=== PATIENT | male | born 1995 | race Caucasian/White ===

== ENCOUNTER 2017-06-09 07:16 | Inpatient (IN) | payer OTHER ==
[2017-05-15 15:35] VITALS: BMI 27.0
--- NOTE | 2017-05-15 15:57 | PAT Medication Instructions ---
Service Date May 15, 2017. Current Home Medication List Ibuprofen (Advil), 400 MG PO Q8H PRN for Headache Medication Instructions For Your Scheduled Surgery - Check with surgeon for instructions: Ibuprofen (Advil), 400 MG PO Q8H PRN for Headache If you have any questions please call us at [phone] or [phone] or [phone]
[2017-05-15 16:42] LABS: BASO % 0.6 %; BASO ABS # 0.03 K/uL (0-0.2); COMPLETE YES; EOS % 0.9 %; HEMATOCRIT 43.6 % (42-52); IG% 0.2 %; LYMPH % 35.9 %; LYMPH ABS # 1.68 K/uL (1.2-3.4); MEAN CELL VOLUME 90.1 fL (80-100); MEAN CORPUSCULAR HGB CONC 34.4 g/dl (32-36); MEAN PLATELET VOLUME 9.2 fL (7.4-10.4); MONO % 8.3 %; NEUT % 54.1 %; PLATELET COUNT 220 K/uL (130-400); RED BLOOD COUNT 4.84 M/uL (4.7-6.1); WHITE BLOOD COUNT 4.68 K/uL (4.8-10.8)
[2017-05-15 16:50] LABS: INR 1.1 (0.9-1.1); PROTHROMBIN TIME (PATIENT) 11.3 SECONDS (9.0-12.0)
--- NOTE | 2017-05-26 19:14 | HISTORY & PHYSICAL EXAMINATION ---
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 PROPOSED SURGICAL PROCEDURE: Consists of a maxillary advancement with direct osseous fixation and a mandibular setback with setback with rotation and direct osseous fixation. As I stated the surgery will be performed at [facility] under general anesthesia on 06/09/2017. HISTORY OF PRESENT ILLNESS: Favio Coyle is a very healthy 21-year-old white male who stands 5 feet 9 inches tall, weighs 180 pounds. He was referred to my office approximately 1 year ago with a chief complaint of a traumatic malocclusion. 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 The patient also is having a great deal of difficulty incising foods and chewing foods because his teeth do not meet in a normal manner. As a result of this, the patient was having excessive wear in his teeth and excessive wear patterns in his jaw joints and muscular structures. He sought the services of an school guard in the [facility] and it was determined that Favio would need a combination of orthodontics and orthognathic surgery. Prior to starting the orthodontics he had a conference with me in which I described the surgery and the timetable for his treatment plan. In essence, I told him that he would need to have extensive orthodontics to level and align his teeth, both upper and lowers so that we could then do jaw surgery to make his upper jaw longer by advancing it and that would give him more support to his upper lip and base of the nose and cheek bone and then rotate his lower jaw with a slight posterior setback to align his teeth and chain in a normal relationship. After discussing the case with Favio, he decided to undergo the orthodontic therapy. He has been undergoing orthodontic therapy for the last 18 months and he is now ready to undergo the orthognathic surgical procedure on 06/09/2017 at [facility]. He is aware that the surgery will be done under general anesthesia in the operating room and he could spent up to 1 or 2 nights in the hospital and one of those nights being in the intensive care unit. I discussed with him all the risks and complications which are inherent with the surgical procedure. A complete list and review can be found in the risk assessment portion of the chart. The basic complications and risks that were discussed were that of pain, swelling, infection, bleeding, malrotation of his jaws, a poor sagittal split fracture and the need for intermaxillary fixation for as long as 4-6 weeks. Usually this is a very rare complication. We talked about nerve problems which could result in permanent numbness to the lower lip, chin, and facial area but again these are very rare and they usually more of a transient nature. We talked about scar formation problems with his temporomandibular joint, a persistent malocclusion and temporomandibular joint problems. We also discussed sinus problems such as acute or chronic sinus issues that will need to be addressed by more surgery or medications. The patient understands that he will be on a restricted diet and restricted activity for the first month after surgery and he is aware of this. We discussed the fact that he will have pain, swelling and need to have close followup by both his school guard in my office. Overall, Favio has an extremely good understanding of the risks, complications associated with the surgery. I gave him plenty of time to review the risks and complications and answered all his questions to the best of my ability. I feel that he has a very good understanding of the expected outcome and the associated risks and complications associated with the surgery that we are about to perform. 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 He lives with his parents in [place], [place]. There are no complicated family history that would cause any contraindications for doing the surgery. The patient is a rather healthy young man without any medical compromise. He has no history of any type of heart or respiratory problems. He has no history of requiring any type of special heart or pulmonary function studies. He is quite active. He can run, walk, do all kinds of activities without noticing any shortness of breath. He was never diagnosed with any type of neurologic, mental health or nervous condition. There is no history of any type of diabetic, thyroid problems or blood dyscrasias. The patient does not give any history of any type of orthopedic or joint problems. No history of any type of oral or digestive problems such as acid reflux or digestive problems. The patient does not smoke. He does use alcohol occasionally and he says no more than 4-5 drinks per week. He does not use any marijuana or cocaine. The patient had multiple oral surgery as a child in which he had teeth extracted, he had frenectomy and also had an esophageal polyp removed under anesthesia. He did well from all the problems and tolerated well these surgeries without any sequelae. He gives no history of any type of liver, kidney or prostate problems. No history of any type of cancer and no history of any type of anesthetic complications. The patient has no allergies and he does not take any drugs or medications at the present time. Overall, I find Favio Coyle age 21 to be a very healthy young man who is capable of undergoing the orthognathic surgical procedure as I described above. PHYSICAL EXAMINATION: HEAD: Normocephalic without any history of any head trauma, loss of consciousness, dizziness or vertigo. No frequent headaches. EARS: Within normal limits. External auditory canals are clear. No hearing deficits. External pinna is within normal limits. There are no lesions noted. Ear drum is clear and there is no excessive wax buildup in the ear canal. EYES: Pupils equal, round, reactive to light and accommodation. Sclerae is clear. Good extraocular motion. Visual acuity is good. NOSE: Midline. Septum is midline. There is no polyps, no deviations. No breathing deficits through the nose. The patient has good air flow through both nostrils. Nose is midline. NECK: Supple, full range of motion. Thyroid is not palpable. There are no bruits, no abnormal pulsations. The patient has an extremely good range of motion of his neck. He has good flexation and good extension. There are no masses noted and thyroid is midline without any palpable masses. ORAL CAVITY: Within normal limits as far as the soft tissue of the floor of the mouth, the tongue, the pharyngeal area and the posterior airways. There are scars along the interocclusal line of the mucosa of the cheeks as well as the lip and lateral tongue as a result of his malocclusion and a constant lip and tongue biting. 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 As a result of this, the patient has an extremely traumatic occlusion with great difficulty in closing his jaws into a normal relationship. Surprisingly, the patient has a good range of motion of his temporomandibular joints without any clicks, pops, or deviations. His chin is grossly deviated approximately 5-7 mm towards the left side. His maxillary midline is in line with his upper lip and the midline of the nose. He has good facial show of his teeth on smile. He is definitely a flat in the mid face area and the upper lip area. My plan is to advance him approximately 7 mm which will give him great support of his upper lip, we may need to do a slight posterior impaction of the maxilla and then do a sagittal split osteotomy to rotate the mandible back and align it up with the upper teeth to achieve a stable occlusion, direct osseous fixation will be used. CARDIOVASCULAR: Evaluation is within normal limits. The patient has no murmurs. The patient has a very good strong heartbeat without any palpable thrills or abnormal pulsations. The patient does not complain of any chest pain or abnormal pulsations or palpitations. LUNGS: Clear to auscultation and percussion, bilaterally symmetric excellent expansion. No history of any type of wheezing, rhonchi or problems with asthma or COPD. ABDOMEN: Nontender. No organomegaly. No rebound phenomena noted. ORTHOPEDIC: Grossly intact. SKIN: Clear, dry, free of pathology. No rashes, lumps or bumps that are noted. No discolorations. Overall, I find Favio to be an extremely healthy young man who is capable of undergoing the orthognathic surgical procedure. Routine laboratory studies were found and they were all found to be within normal limits. I did an occlusal evaluation of the patient and checked his surgical appliances, they appear to be fitting very well. His case was sent for virtual planning and I will be reviewing the virtual planning on 05/28/2017 to virtually plan the case on the computer and then have the surgical guides made. All in all, Favio is capable of undergoing the surgical procedure. I answered all his questions and he feels very comfortable in the procedure. He understands the importance of close followup, oral hygiene care and dietary care. The patient was given explicit instructions on how to care for himself after the surgical procedure and as a matter of fact was given postoperative prescriptions and postoperative instructions. The postoperative prescriptions included Peridex mouth rinse, Zofran, Vicodin and Augmentin. These will be used after the surgery. He was also given instructions about the use of [place] nasal spray and Afrin nasal spray. He was given my telephone number, my cell number and my email to contact me before or after the surgical procedure if he or his parents have any questions.
[2017-06-09] VITALS (16 sets, daily range): BP systolic 124–140; BP diastolic 63–81; PULSE 55–103; TEMP 36.5–37; O2SAT 92–99; Ht 175.3 cm; Wt 84.0 kg
[~2017-06-09] VITALS: Ht 175.3 cm; Wt 84.0 kg
[~2017-06-09 07:16] MED LIST: CEFAZOLIN 1000MG IV PUSH 5 ML IV SCH; CEFAZOLIN 2000MG IV PUSH 10 ML IV SCH; IBUP-1277 PO; LACTATED RINGER'S 1000ML 1,000 ML IV SCH
[2017-06-09] MEDS ORDERED: FLUMAZENIL 0.1 MG/1 ML 10 ML VIAL IV PRN (08:00)
[2017-06-09] MEDS ORDERED: EpHEDrine SULFATE INJ 50 MG/ML AMP IV PRN (08:00)
[2017-06-09] MEDS ORDERED: NALOXONE HCL 0.4 MG/1 ML VIAL/CARP IV PRN (08:00)
[2017-06-09] MEDS ORDERED: ATROPINE SULFATE 0.1 MG/ML 5ML SYR IV PRN (08:00)
[2017-06-09] MEDS ORDERED: PHENYLEPHRINE 100MCG/ML 5ML SYR IV PRN (08:00)
[2017-06-09] MEDS ORDERED: MEPERIDINE HCL 25 MG/ML CARP IV PRN (08:00)
[2017-06-09] MEDS ORDERED: FENTANYL CITRATE INJ 50 MCG/1 ML 2 ML VIAL IV PRN (08:00)
[2017-06-09] MEDS ORDERED: HYDROmorphone INJ 2 MG/ML SYR/VIAL IV PRN (08:00)
[2017-06-09] MEDS ORDERED: LABETALOL HCL IV 5 MG/ML 20ML IV PRN (08:00)
[2017-06-09] MEDS ORDERED: ONDANSETRON INJ 2 MG/ML 2 ML VIAL IV PRN (08:00)
[2017-06-09] MEDS ORDERED: SCOPOLAMINE 1.5 MG TDSY TD ONE ×2 (08:10→08:15)
[2017-06-09] MEDS ORDERED: ACETAMINOPHEN 1000 MG/100 ML IV IV ONE (08:21)
[2017-06-09] MEDS ORDERED: FENTANYL CITRATE INJ 50 MCG/1 ML 2 ML VIAL ONE ×3 (09:15→11:26)
[2017-06-09] MEDS ORDERED: ROCURONIUM BROMIDE 10 MG/ML 5 ML VIAL IV ONE (09:15)
[2017-06-09] MEDS ORDERED: LIDOCAINE HCL 2% 2 ML VIAL (20MG/ML) ONE (09:15)
[2017-06-09] MEDS ORDERED: PROPOFOL IV EMULSION 10 MG/ML 20 ML VIAL IV ONE ×2 (09:15→11:28)
[2017-06-09] MEDS ORDERED: MIDAZOLAM HCL 1 MG/ML 2ML VIAL ONE (09:16)
--- NOTE | 2017-06-09 09:20 | History & Physical Bridge Note ---
H&P Re-Evaluation Bridge Note: I have examined the patient, reviewed the History & Physical and in the interval since the performance of the History & Physical I have noted the following changes of clinical significance: No changes noted
[2017-06-09] MEDS ORDERED: PHENYLEPHRINE 1% NA SPR 15 ML BTL ONE (09:28)
[2017-06-09] MEDS ORDERED: SODIUM CHLORIDE 0.65% NA SOLN 45 ML (OCEAN) PRN (09:30)
[2017-06-09] MEDS ORDERED: ACETAMINOPHEN/HYDROCODONE ELIX 15 ML/CUP UDP PO PRN (09:30)
[2017-06-09] MEDS ORDERED: LORAZEPAM INJ 1 MG in SYRINGE 0.5 ML IV PRN (09:30)
[2017-06-09] MEDS ORDERED: MoRPHine SULFATE 2 MG/ML CARP IV PRN (09:30)
[2017-06-09] MEDS ORDERED: OXYMETAZOLINE HCL 0.05% NA SPR 15 ML BTL PRN (09:30)
[2017-06-09] MEDS ORDERED: TRIAMCINOLONE ACET 0.1% OINT 15 GM TUBE ONE (09:51)
[2017-06-09] MEDS ORDERED: BUPIVACAINE/EPINEPHRINE 0.5% 1:200,000 1.8 ML CARP ONE (09:52)
[2017-06-09] MEDS ORDERED: DEXAMETHASONE SOD INJ 4 MG/ML VIAL ONE ×2 (10:22→10:23)
[2017-06-09] MEDS ORDERED: ONDANSETRON INJ 2 MG/ML 2 ML VIAL ONE (10:23)
[2017-06-09] MEDS ORDERED: LABETALOL HCL IV 5 MG/ML 20ML IV ONE (11:29)
[2017-06-09] MEDS ORDERED: GLYCOPYRROLATE INJ 0.2 MG/ML VIAL ONE (12:33)
[2017-06-09] MEDS ORDERED: NEOSTIGMINE METHYLSULFATE 5 MG/5 ML SYR ONE (12:33)
[2017-06-09] MEDS ORDERED: HYDROmorphone INJ 2 MG/ML SYR/VIAL ONE (13:13)
[2017-06-09] MEDS ORDERED: CHLORHEXIDINE GLUCONATE 0.12% 480 ML MT ONE (13:56)
[2017-06-09] MEDS ORDERED: CEFAZOLIN SOD 1 GM VIAL ONE (13:57)
--- NOTE | 2017-06-09 14:47 | [facility] Post Operative Brief Note ---
Immediate Operative Summary Operative Date Jun 09, 2017. Pre-Operative Diagnosis Severe Maxillary and Mandibular Dysplasia Post-Operative Diagnosis Severe Maxillary and Mandibular Dysplasia Procedure(s) Performed Lefort I Maxillary Osteotomy and Mandibular Sagittal Split Surgeon Dr. Neal Medical Care Administrator Surgeon(s) BROCK Carrillo Estimated Blood Loss 150 cc Findings maxillary hypoplasia and prognathic lower jaw Specimens none per surgeon Drains none Anesthesia GA and Local Complication(s) None Disposition Surgical ICU
--- NOTE | 2017-06-09 15:21 | Anesthesiology Progress Note ---
Anesthesia Post Op Note Date & Time Jun 09, 2017 at 15:21 Vital Signs Pain Intensity: 0 Vital Signs Past 12 Hours Date Time Temp Pulse Resp B/P (MAP) Pulse Ox O2 Delivery O2 Flow Rate FiO2 06/09/17 15:15 36.6 71 16 125/77 95 Oxymask 10 06/09/17 15:05 51 16 126/74 95 Oxymask 10 06/09/17 14:55 55 16 120/72 95 Oxymask 10 06/09/17 14:45 36.5 61 16 125/76 97 Oxymask 10 06/09/17 07:42 36.5 78 20 129/75 99 Room Air Notes Mental Status: alert / awake / arousable, participated in evaluation Pt Amnestic to Procedure: Yes Nausea / Vomiting: adequately controlled Pain: adequately controlled Airway Patency, RR, SpO2: stable & adequate BP & HR: stable & adequate Hydration State: stable & adequate Anesthetic Complications: no major complications apparent
--- NOTE | 2017-06-09 15:30 | DIAGNOSTIC IMAGING REPORT ---
MANDIBLE < 4 VIEWS CLINICAL HISTORY: 21 years-old Male presenting with Status post Orthognathic Surgery AP Mandibular and lat Jaw. TECHNIQUE: Frontal and lateral views of the mandible were obtained. COMPARISON: None. FINDINGS: Multiple screw fixation across the bilateral mandibular fractures at the level of the posterior body near the angle of the mandible. Additional extensive late and screw fixation of the lateral maxillae and maxillary and mandibular alveolar processes. The mandible is in near-anatomic alignment with minimal diastases at the fracture plane greater on the left. The sinuses are grossly clear. Bony nasal septum with slight leftward deviation. IMPRESSION: Postsurgical changes of mandibular fixation with near-anatomic alignment of the mandible. Additional fixation hardware as above. Electronically signed by: Fly Tucker M.D. 06/09/2017 3:29 PM Dictated Date/Time: 06/09/2017 3:26 PM
[2017-06-09] MEDS: ONDANSETRON INJ 2 MG/ML 2 ML VIAL IV PRN ×2 (16:05→21:51)
--- NOTE | 2017-06-09 16:45 | Critical Care Consultation ---
Critical Care Consultation Date of Consultation: Jun 09, 2017. Attending Physician: Pilo Neal D.M.D. Reason for Consultation: Airway Management. History of Present Illness : Favio Coyle is a very healthy 21-year-old white male who stands 5 feet 9 inches tall, weighs 180 pounds. He was referred to my office approximately 1 year ago with a chief complaint of a traumatic malocclusion. 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 The patient also is having a great deal of difficulty incising foods and chewing foods because his teeth do not meet in a normal manner. As a result of this, the patient was having excessive wear in his teeth and excessive wear patterns in his jaw joints and muscular structures. He sought the services of an detective precinct in the [facility] and it was determined that Favio would need a combination of orthodontics and orthognathic surgery. The patient underwent Le[place] I Maxillary Osteotomy and Mandibular Sagittal Split. Currently he is in the ICU for the close monitoring of the oxygenation and airway management if at all his breathing is jeopardize. Currently he is resting comfortably and denies any distress except post surgical pain in the jaw. He is able to communicate and is oxygenating well 96 to 97 % on 6 L oxymask. He does not have any H/O Obstructive sleep apnea syndrome. Social History Smoking Status: Never Smoker Alcohol Use: socially Drug Use: none Marital Status: single Housing Status: lives with family Occupation Status: student Allergies Coded Allergies: NO KNOWN DRUG ALLERGIES (Verified Allergy, Unknown, ., 06/09/17) Home Medications Scheduled PRN Ibuprofen (Advil), 400 MG PO Q8H PRN for Headache Current Inpatient Medications Current Inpatient Medications Medications (Trade) Dose Ordered Sig/Adrian Route Start Time Stop Time Status Last Admin Dose Admin Lactated Ringer's 1,000 ml @ 15 mls/hr Q24H IV 06/09/17 06:00 06/10/17 05:59 06/09/17 07:59 15 MLS/HR Cefazolin Sodium 10 ml @ 2.5 mls/min PREOP IV 06/09/17 06:00 06/10/17 05:59 06/09/17 09:54 2.5 MLS/MIN Miscellaneous (Remove Transderm-Scop Patch) 1 ea Q48H N/A 06/12/17 08:00 06/12/17 08:01 Potassium Chloride/Dextrose/ Sod Cl 1,000 ml @ 125 mls/hr Q8H IV 06/09/17 16:30 07/09/17 16:29 Ketorolac Tromethamine (Toradol Inj) 30 mg Q6 IV. 06/09/17 12:00 06/14/17 11:59 UNV Dexamethasone Sodium Phosphate 6 mg/Syringe 1.5 ml @ 1 mls/min Q6 IV 06/09/17 12:00 07/09/17 11:59 UNV Oxymetazoline HCl (Afrin 0.05% Nasal [place]) 2 sprays Q4H PRN NA 06/09/17 09:30 07/09/17 09:29 Ondansetron HCl (Zofran Inj) 4 mg Q6H PRN IV 06/09/17 09:30 07/09/17 09:29 06/09/17 16:05 4 MG Triamcinolone Acetonide (Kenalog 0.1% Oint) 1 appln HS EXT 06/09/17 21:00 07/09/17 20:59 Lorazepam 1 mg/ Syringe 1 ml @ 1 mls/min Q4H PRN IV 06/09/17 09:30 07/09/17 09:29 Chlorhexidine Gluconate (Peridex Oral Soln) 15 ml BID MT 06/09/17 21:00 07/09/17 20:59 Sodium Chloride (Hooven Nasal [place]) 2 sprays Q2H PRN NA 06/09/17 09:30 07/09/17 09:29 Acetaminophen/ Hydrocodone Bitart (Lortab Elixir) 15 ml Q3H PRN PO 06/09/17 09:30 06/23/17 09:29 UNV Morphine Sulfate (MoRPHine SULFATE INJ) 2 mg Q1H PRN IV 06/09/17 09:30 06/23/17 09:29 Cefazolin Sodium 1000 mg/Dextrose 55 ml @ 100 mls/hr Q8H IV 06/09/17 09:30 06/10/17 09:29 UNV Review of Systems ENT: + dental problems Musculoskeletal: + joint pain (Post operatively/mandibular pain.) Physical Exam Date Time Temp Pulse Resp B/P (MAP) Pulse Ox O2 Delivery O2 Flow Rate FiO2 06/09/17 15:57 37.0 55 18 140/70 (93) 96 Oxymask 6.0 06/09/17 15:40 36.6 60 16 128/78 96 Oxymask 10 06/09/17 15:25 36.6 61 16 131/80 95 Oxymask 10 06/09/17 15:15 36.6 71 16 125/77 95 Oxymask 10 06/09/17 15:05 51 16 126/74 95 Oxymask 10 06/09/17 14:55 55 16 120/72 95 Oxymask 10 06/09/17 14:45 36.5 61 16 125/76 97 Oxymask 10 06/09/17 07:42 36.5 78 20 129/75 99 Room Air Young Male, S/Post surgery Lefort I Maxillary Osteotomy and Mandibular Sagittal Split resting comfortably and is not in any distress and is also oxygenating well 96 % on 6 L Oxymask. HEENT: TAMEKA/ Unable to examine the throat or the mouth, because of the surgery. NECK: Supple and no JVD. No lymphadenopathy. CHEST: Bilateral clear lungs. No wheeze or the rales heard. HEART: S1/S2 heard. RRR. GI: Soft and non tender. No mass felt. BS positive. NEURO: Non focal. Moves all the extremities. EXTREMITIES: No edema/Non tender calf muscle. SKIN : No rash or lesion. General Appearance: well-appearing, no apparent distress Eyes: PERRLA, sclerae normal, conjunctivae normal ENT: normal ear exam Neck: normal range of motion, no tenderness, trachea midline, no stridor, supple, no thyromegaly, no lymphadenopathy Respiratory: breath sounds normal, clear to auscultation, clear to percussion, no respiratory distress Cardiovasular: regular rate/rhythm, normal S1S2 Abdomen: non tender, normal bowel sounds, no rebound, no masses, no guarding, no organomegaly Genitourinary - Male: other (Not performed.) Upper Extremities: no edema, no deformity, normal ROM Lower Extremities: no edema, no deformity, normal ROM Pulses: radial (R) (2+), radial (L) (2+), dorsalis pedis (R) (2+), dorsalis pedis (L) (2+) Neuro: alert, oriented x 3, normal motor exam, normal sensation Psychiatric: normal affect, no suicidal ideation Diagnostic Results FINDINGS: Multiple screw fixation across the bilateral mandibular fractures at the level of the posterior body near the angle of the mandible. Additional extensive late and screw fixation of the lateral maxillae and maxillary and mandibular alveolar processes. The mandible is in near-anatomic alignment with minimal diastases at the fracture plane greater on the left. The sinuses are grossly clear. Bony nasal septum with slight leftward deviation. IMPRESSION: Postsurgical changes of mandibular fixation with near-anatomic alignment of the mandible. Additional fixation hardware as above. Assessment & Plan 1. Severe Maxillary and Mandibular Dysplasia. The patient S/Post Lefort I Maxillary Osteotomy and Mandibular Sagittal Split. The patient was transferred in to ICU for close monitoring of the patient and also airway management. Overall he seems to be doing better on current plan of care and will monitor him closely. DVT prophylaxis. Dr. [facility].
--- NOTE | 2017-06-09 17:25 | OPERATIVE REPORT ---
DATE OF OPERATION: 06/09/2017 SURGEON: Dr. Pilo Neal. OPERATIVE INDICATIONS: Favio Coyle is a healthy 21-year-old white male was brought to the operating room for correction of a maxillofacial deformity. 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 As a result of this jaw deformity, the patient was not able to close his jaws into a normal relationship, has a great deal of difficulty with eating and function because of the severe positioning of his upper and lower jaws. The patient has undergone extensive orthodontic therapy to level and align his teeth in preparation for the orthognathic surgery today. My plan is to perform a [place] I maxillary osteotomy to advance and slightly impact the maxilla on the right side to level the maxilla, to rotate the maxilla slightly towards the right side to line up his maxillary midline with his nasal midline and then use direct osseous fixation. Once this was done, a bilateral sagittal split osteotomy will be done to set the mandible back and rotate it to establish a good postoperative occlusion in the class 1 relationship. The patient has a good understanding of the procedures and inherent risks. Routine laboratory studies were all found to be within normal limits and the patient was cleared to undergo the general anesthetic. DESCRIPTION OF PROCEDURE: After the patient was cleared to undergo general anesthesia, he was brought down to the operating room and placed under general anesthesia via nasotracheal intubation. After adequate timeout was verified, the operation began. He was anesthetized by the anesthetic Department via nasotracheal intubation. After adequate level of anesthesia was obtained, the patient was prepped and draped in the usual manner and sterile towels were used to isolate the facial area. At this time, local anesthesia was infiltrated around the maxillary and mandibular teeth to allow for hemostasis and local anesthetic effect of both the maxillary and the mandibular osteotomies. The plan was to perform the bilateral sagittal split cuts without fracturing the mandibular sagittal split areas and then completing the maxillary osteotomy, the LeFort I osteotomy with direct fixation and then complete the osteotomy cuts on the lower, induce the direct fixation and then finally complete the case. The operation started as follows: After the oral cavity was irrigated and suctioned dried an oropharyngeal throat pack was placed, I turned my attention to the right side. With the use of a retractor, the tissues were held very tight and electrocautery was used to make an incision along the external oblique ridge, approximately 1.5 cm in length. The tissues were reflected and incised with the electrocautery instrument down to the bone. The periosteal tissue was reflected to expose the bone. The bone was very thin with a very sharp external oblique ridge. Once the tissue was reflected, I was able to very carefully dissect the lingual tissue to find the entrance of the neurovascular bundle as it entered the mandibular canal. Once this was countered, a retractor was placed to protect the nerve. Now using a large round luis f, the very spinous process of the external oblique ridge was rounded out to allow for a plateauing effect. Now using a reciprocating saw, an osteotomy was made parallel to the occlusal plane, approximately 1-2 mm above the neurovascular bundle on the lingual side. Now switching to a spear point Etienne luis f, series of holes were made in the external oblique ridge from the previously made osteotomy to the area between mandibular, first and second molars. It was taken to the dense cortical bone. I switched back to the reciprocating saw and made a parallel osteotomy to the long axis of the first molar through the dense cortical bone in the inferior border of the mandible. Once this was done, I made sure that all the osteotomy sites were through the cortical bone. Bleeding and hemostasis was in good control. At this time, the area was irrigated with copious amounts of normal saline and then a gauze pressure dressing was placed. I now turned my attention to the left side. Once again, the tissues were held very tightly with a retractor. The electrocautery was used to incise the tissue. Once the tissues were incised, it was reflected to expose the anatomical structures in the area where the osteotomy would be. Once again, the anatomy was similar and that a large round luis f was used to round off the very spinous process of the external oblique ridge. Once this was done, I then located the neurovascular bundle as it entered the lingual aspect of the mandible. Now using a reciprocating saw, an osteotomy was now made parallel to the occlusal plane approximately 2 mm above the neurovascular bundle. I now used a spear point Etienne drill to make a series of holes and then connected these holes into the marrow vascular channel. When I encountered the area between the first and second molars, I then returned back to the reciprocating saw and made an osteotomy parallel to the long axis of the first molar and through the dense cortical bone of the inferior border. Once I was certain that all cuts were made through the cortical bone, I packed the area and made sure that all hemostasis was in good. Once this was done, this portion of the procedure was complete. I now turned my attention to the maxilla. From the preoperative planning, it was required that the maxilla be advanced approximately 8 mm. In addition to being advanced, there was a slight rotation towards the right side and a slight impaction of about 3 mm on the right side. These were necessary to both level the maxillary occlusal plane and to ensure that the midline of the maxilla was lined up to the patient's facial midline. To accomplish this, a typical LeFort I osteotomy was carried out. The tissues were incised with the electrocautery instrument. The incisions were reflected to expose the bone. The periosteal elevators were used to reflect the mucoperiosteal tissues around the nose and then I dissected posteriorly to the tuberosity regions. Once this was done, the roots were measured and then I added 5 mm to this measurement. Using the reciprocating saw, once again an osteotomy was made parallel to the occlusal plane from the piriform rim posterior to the tuberosity region. It was done on both right and left sides. Once these osteotomies were complete, I used a ball-curved osteotome and osteotomized the medial lerma of the maxillary sinus. I then used another balled osteotome but this one was straight and I osteotomized the nasal septal bone to reflect it off the roof of the maxilla. Great care was taken to undermine the mucoperiosteal tissues to prevent any rents in the mucoperiosteal tissues of the floor of the nose. I then turned my attention back to the tuberosity pterygoid region and with the use of a curved osteotome, I was able to osteotomize the pterygoid plates bilaterally. By doing so, the maxilla was now quite passive and I was able to down fracture without any problem. Great care was taken down fracture the maxilla to ensure that there were no rents in the mucoperiosteal tissue. Despite very careful maneuvering, there were 2 small rents that were easily repaired with use of a 3-0 chromic suture. Otherwise, the nasal mucoperiosteal tissues were in good position. With great care, I was able to reflect the mucoperiosteal tissue and the bony margins around the neurovascular bundles bilaterally. The greater palatine artery and neurovascular bundles on both right and left sides of the maxilla was isolated. Great care was used to remove bone around the vessel and by doing so, I was able to free up the vessel. At this time, it was noted that we still had some tethering effect of the maxilla due to the fibrous tissue in the posterior aspect. With the use of both blunt and sharp dissection, I was able to release this tethering effect and the maxilla became quite passive. I was thinking of severing the attachments of the greater palatine artery and nerve to allow for a more relaxed maxilla, but it was noted that I was able to advance the maxilla in the predetermined postoperative position without any undue force on the nerves. At this time, I was very happy with the very passive nature of the maxilla. At this time, the intermediate splint was placed on the mandible. The maxilla was easily positioned into the splint and held there with the use of with 25 gauge stainless steel wires in 5 locations. At this time, I was able to rotate the maxilla and mandibular complex superiorly after making sure that the condyles were well seated within the glenoid fossa. By doing this, I now noted that I had to remove approximately 3 mm of bone on the right side to account for the leveling effect, this was easily done with both rongeurs and rotary instrument. Once the maxilla was leveled and slightly rotated to the right side, I noted that we had good bony contact of the maxilla and that the maxilla was quite stable in this position. There was no locking or deviations. The nasal septal bone was noted to be in good position without any forces that would cause a deviation. All the bony margins were smoothed and trimmed. There were no abnormal bony protuberances. The bilateral buccal fat pads were trimmed to remove any excess fat in the area. Once again, we had good visualization of the neurovascular bundles and they were very relax and free. I dissected quite vigorously posteriorly into the soft palate to allow for a relaxed advancement. At this time, the areas were irrigated and suctioned dried, bleeding and hemostasis was in good control. The tissue tone was excellent. At this time, we started the direct fixation of the maxilla. To accomplish this, Titanium plates were carefully bent and passively fitted bilaterally over the pyriform rim and the buttress areas. Using self-tapping self-drilling screws, the plates were positioned very appropriately and then the appropriate screws were used. Once we induced the direct fixation, I released the intermaxillary fixation and I noted that the maxilla was stable and in good position and the condyles were well seated within the glenoid fossa as we had a reproducible bite. Being satisfied with the repositioning of the maxilla, I now turned my attention back to the mandible. The gauze pressure dressings were removed bilaterally. I turned my attention first to the right side. With the use of the appropriate sagittal splitters and small osteotomes, I was able to complete the osteotomy on the right side with preservation of the neurovascular bundle. Because there was a rotational effect of the maxilla, I needed to do some bony reduction posteriorly to allow for the large segment of the mandibular osteotomy to slide posteriorly. I also know that will need to come back and do some bony reduction on the anterior aspect of the distal fragment to allow for the setback as well. Once this was completed on the right side, I turned my attention to the left side where a similar osteotomy was carried out with preservation of the nerve. The adjustments of the bones were carried out with the use of small rongeurs and rotary instruments. Great care was taken to allow for a reduction of the bone posteriorly to allow for the sliding effect and I will address the distal fragment, once the patient was placed in intermaxillary fixation. At this time, the oropharyngeal throat pack was removed, the oral cavity was irrigated and suctioned dried, the nasal cavity was also irrigated and suctioned dried of any clots within the nasopharyngeal area. I now placed the final splint on the maxilla and then the mandible was now rotated into position. Once again using 5 wires, I was able to place the wires in between the maxillary and mandibular teeth to induce intermaxillary fixation. Once the maxilla and mandible complex was secure, I then turned my attention first to the right side. With the use of a small periosteal elevator, I was able to make sure that the soft tissue was removed appropriately to allow for a passive setback and rotation of the mandible. To do so, I used a J periosteal elevator to reflect the mucoperiosteal tissue. I also made sure that because of the rotational effect posteriorly that I remove some bone in the posterior aspect to accommodate this. Now using a small hemostat, I was able to place the 2 fragments over each other and I noted that I needed to remove approximately 3 mm of bone in the anterior aspect of the distal fragment, this was done with the use of rotary instruments. Once this was done, I was able to line up the 2 fragments in the appropriate position and did the appropriate bony reductions to allow for good positioning of the condylar fragment and good positioning of the inferior border of the mandible. After this was accomplished, I then rotated the condylar fragment into position. With great care noting that the condyles were well seated. Using a small clasp, I was able to hold the 2 fragments together and then using an 11 blade, I made a small ann in the cheek, a trocar was placed and then using a series of 4 screws, I was able to place screws between the fragments to induce direct fixation of the mandibular fragment on the right side. Again, great care was taken to position the nerve to prevent any compression. Once this was done, I then adjusted any bony protuberances, irrigated the area with copious amounts of normal saline and then sutured closed with the use of a 4-0 Vicryl suture in an interrupted fashion. I now turned my attention back to the left side. At this time, the fragments were not in good alignment, because of the rotational effect and the need to reduce the fragment. With the use of a proper retraction, I was able to note that we needed to move this section of the mandible back about 5 mm and rotated again to the left side. This necessitated more bony reduction in the posterior aspect of the condylar fragments to allow for a passive fitting. Once this aspect of the osteotomy was completed, I then used a small clasp and held the 2 fragments together and noted that I needed to remove approximately 5 to 5.5 mm of bone in the anterior area and angle the anterior aspect of the distal fragment to allow for the appropriate positioning of the mandible. Once this was done with rotary instruments, I was then able to clasp the 2 fragments together and noted that we had excellent bone to bone contact. Now with the use of an 11 blade, the ann incision was made in the cheek, the trocar was placed and now using a series of 3 screws in the length of a 12 and 210, I was able to get excellent direct fixation of the fragment on the left side. Once again, appropriate bone reduction was carried out to ensure that the fragments were positioned properly and the inferior borders were lined up as well as the condyles were seated in the fossa. Being satisfied with this, I then checked the position of the screws to make sure the imperforate through the lingual cortical bone. I then checked the osteotomy sites for the fact that they were extremely stable. I then irrigated the area and closed the area with the use of a 4-0 Vicryl suture. At this time, I released the intermaxillary fixation and judged the occlusion to be extremely stable and reproducible. The midline was on and the occlusion was actually just as anticipated. Being satisfied with the position of the mandible, I then turned my attention to the maxilla, we irrigated the maxillary sinuses and made sure that hemostasis was in good control, any fat that was extruding into the wounds were easily trimmed. Being satisfied with the position of the maxilla and the stability of the maxilla, we then used our typical closure technique as follows: A nasal cinch technique was used to allow for proper positioning of the alar cartilage of the nose. This was done to ensure good soft tissues to support to the alar cartilages and base of the nose. The tissue was grasped on the right side and a [id number] pattern was used to grasp the tissue on the left side and then a by synching the sutures together, we ended up with a very nice anatomical relationship to the base of the nose. Once this was accomplished, a standard V-Y closure with a 4-0 Vicryl suture was carried out to induce excellent soft tissue closure to watertight closure of the maxillary incision. This created a very nice anatomical support to the upper lip and nose. At this time, the operation was complete. I now turned the case over to my agency sales management assistant, Liliam Almonte and she completed the incisions in the cheek that were made to allow for the positioning of the screws. She also placed an orogastric tube and evacuated the contents of the oral cavity. When she was done with this, I returned to the operating room table, I placed one dental elastic between the cuspid teeth to allow for some stability during the immediate postoperative phase. The patient will then be escorted to the recovery room. At this time, a heavy pressure dressing was applied to the upper lip and to the sides of the face. Once everything was accomplished, the patient was allowed to recover in the usual manner. Upon full recovery, he was extubated, and brought to the recovery room breathing satisfactorily with all vital signs stable. Estimated blood loss approximately 150 mL. Operating time was about 4 hours. Operating surgeon was Pilo Neal and agency sales management assistant was Liliam Almonte. The plan is to keep the patient in the recovery room and then transfer him to the intensive care unit for airway management. Depending on how the patient does tomorrow morning, will determine the length of stay that he will be in the hospital. Overall, Favio Coyle did extremely well from the surgical procedure. His outcome turned out to be very very good, he has a stable maxilla and mandible with a reproducible occlusion and we anticipate an uneventful recovery. I attest to the content of the Intraoperative Record and any orders documented therein. Any exception s are noted below.
[2017-06-09] MEDS: D5W AND 1/2NSS + 20MEQ KCL 1,000 ML IV SCH (17:33)
[2017-06-09] MEDS: CEFAZOLIN IV 1,000 MG in SYRINGE 0 ML IV SCH (17:33)
[2017-06-09] MEDS: KETOROLAC TROMETHAMINE 30 MG/ML VIAL IV. SCH (17:34)
[2017-06-09] MEDS: DEXAMETHASONE INJ 6 MG in SYRINGE 0 ML IV SCH (18:37)
[2017-06-09] MEDS ORDERED: INFLUENZA ADMINISTRATION CHARGE ONE (19:30)
[2017-06-09] MEDS ORDERED: INFLUENZA VIRUS QUAD VACCINE 0.5 ML SYR IM. ONE (19:30)
[2017-06-09] MEDS: CHLORHEXIDINE GLUCONATE 0.12% 480 ML MT SCH (19:53)
[2017-06-09] MEDS ORDERED: TRIAMCINOLONE ACET 0.1% OINT 15 GM TUBE EXT SCH (21:00)
[2017-06-10] VITALS (7 sets, daily range): BP systolic 107–142; BP diastolic 57–64; PULSE 62–84; TEMP 36.8–36.9; O2SAT 93–97
[2017-06-10] MEDS: D5W AND 1/2NSS + 20MEQ KCL 1,000 ML IV SCH (00:30)
[2017-06-10] MEDS: DEXAMETHASONE INJ 6 MG in SYRINGE 0 ML IV SCH ×2 (00:31→05:43)
[2017-06-10] MEDS: KETOROLAC TROMETHAMINE 30 MG/ML VIAL IV. SCH ×2 (00:31→05:43)
[2017-06-10] MEDS ORDERED: SODIUM CHLOR 0.45% + 20MEQ KCL 1,000 ML IV SCH (01:00)
[2017-06-10] MEDS: CEFAZOLIN IV 1,000 MG in SYRINGE 0 ML IV SCH ×2 (03:05→09:30)
--- NOTE | 2017-06-10 06:47 | Discharge Instructions ---
Discharge Instructions Date of Service Jun 10, 2017. 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 Instructions / Follow-Up Instructions / Follow-Up [facility] GENERAL POST-OPERATIVE INSTRUCTIONS FOR PATIENTS HAVING JAW SURGERY POST-OP INSTRUCTIONS BLEEDING: Will be under control by the time you leave our operating room. Some oozing or blood-tinged saliva may persist for up to 24 hours. Should excessive bleeding occur call the office or Dr. Neal. Expect nasal oozing for a few days. This also will occur after getting up or after you shower. PAIN: Is best controlled by the medications recommended. They are most effective when taken before the local anesthesia diminishes and normal sensation returns to the area. Do not take pain pills on an empty stomach. Narcotic pain medication such as Vicodin or Percocet may cause nausea, vomiting, drowsiness, dizziness, itching or constipation. If these side effects occur, discontinue the medication. You may take an alternative over the counter pain medication (Tylenol or Motrin ) as necessary or call our office for assistance. SWELLING: May occur immediately and increase gradually over 24-48 hours. Swelling from the surgical procedure will maximize at 48-72 hours. Ice packs applied externally to the area at 20 minute intervals throughout the day of surgery may help control swelling, but only use them if advised to by our office. Sleeping with the head of bed elevated above the level of the heart for the first two post-operative nights may tend to lessen swelling. NAUSEA: May result from a general anesthetic or the drugs prescribed for pain. Drinking a small glass of a carbonated beverage will generally control mild nausea. If not controlled, call the office. The Zofran ODT may be used as instructed. DIET: Soft foods and liquids will be required for 24-48 hours following surgery. Avoid hot, spicy foods. Do not smoke. Non-chewy foods are okay if you are using the elastic bands. Follow the instruction about what to eat and how to remove and replace your bands as instructed by Dr. Neal. If your jaw is wired together -liquid diet ONLY. ORAL HYGIENE: Should not be neglected. Vancleve your teeth as usual and rinse with warm salt water after each meal beginning gently the night of surgery. Use Peridex twice a day. Other mouth rinses can be used to keep your mouth clean. ACTIVITY: Should be restricted to a minimum for the first 7 -10 days. Strenuous work or exercise may promote bleeding. If you have had a general anesthetic or sedation, we must require that you be accompanied home by a responsible adult and an adult stays with you until recovered from the effects of the anesthesia. Under no circumstances are you to drive a car for at least 24 hours. FEVER: After surgery it is normal for the body temperature to be slightly elevated for 24 hours. SIDE EFFECTS: Such as an ear ache, temporary ache of adjacent teeth, restricted mouth opening , stretching or cracking at the corners of the mouth or discoloration of the skin may occur postoperatively. These are temporary conditions that will improve as healing progresses. As a result of the surgery your bite will feel off, this is normal. Your lower and upper lip will also feel numb as a result of the surgery; over time this will subside. EMERGENCIES: In case of profuse bleeding, uncontrolled pain, persistent nausea or abnormal elevation of temperature, if you have any questions about these instructions or your surgery please call our office or Dr. Reece cell phone. Our goal is to make this procedure as safe and pleasant as possible. Email Dr. Neal---[email or web address] Phone Dr. Neal after hours and weekends, Phone (office) [phone] Current Hospital Diet clear liquid advance to full the soft diet Patient's current hospital diet: Discharge Diet Recommended Diet: Clear Liquid Diet, Full Liquid Diet Fluid Restriction: None Diet Texture: Dental Soft (bite-sized) Liquid Consistency: Pudding Thick Procedures Procedures Performed: Lefort I Maxillary Osteotomy and Mandibular Sagittal Split Pending Studies Studies pending at discharge: no Laboratory Results no pending Work Instructions Return To Work: after follow-up Lifting Limitations: no more than 10 pounds Additional Instructions: none School Instructions Return To School: 5 days Additional Instructions: OK to Drive in 4-5 days as long as not on Vicodin I will need to see you with in 7-10 0f discharge Medical Emergencies . Who to Call and When: Medical Emergencies: If at any time you feel your situation is an emergency, please call 911 immediately. . Non-Emergent Contact Non-Emergency issues call your: Specialist Call Non-Emergent contact if: you have a fever, temperature is above 101, your pain is not controlled, your pain is worsening, your pain is concerning you, wound has increased drainage, wound has increased redness, wound has increased pain, you have any medication questions . "Provider Documentation" section prepared by Pilo Neal. . VTE Core Measure Inpt VTE Proph given/why not?: SCD's [place] Drug Monitoring Program Search Results: no issues identified Drug Monitoring Findings: none noted
--- NOTE | 2017-06-10 07:43 | DISCHARGE SUMMARY ---
DISCHARGE SUMMARY AND POSTOPERATIVE NOTE Favio Coyle underwent a rather extensive orthognathic surgical procedure yesterday at [facility]. 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 Direct osseous fixation was applied. Once this was accomplished, bilateral sagittal split osteotomies were carried out to set back and rotate the lower jaw and establish a normal dental occlusion. The patient underwent the surgical procedure yesterday at [facility] under general anesthesia. The surgery took approximately 4 hours and subsequently, the patient was discharged to the recovery room and then to the intensive care unit. The patient had an uneventful surgical and anesthetic event. He tolerated both the surgery and the anesthesia without any problems. We lost about 150 mL of blood. The overall result was exactly as planned. Postoperative x-rays showed very good approximation of the fragments of the maxilla and mandible with proper leveling and positioning of the maxilla and mandible. The temporomandibular joints were well seated within their respective temporomandibular joint fossa. Postoperatively, the patient did extremely well. I evaluated him a number of times last evening first in the recovery room and then in his ICU bed. At the time that he was observed in the ICU bed, he was still quite lethargic from the anesthesia. He had minimal swelling. His occlusion was stable and his vital signs were also stable. At that time, I evaluated the postoperative x-rays and found that they were very satisfactory. Again, I evaluated the patient at approximately 07:30 p.m. on June 09. At this time, the patient was more awake. He was taking fluids. He did not void at that time, but he was not complaining of any pain and again his vital signs are stable. My final evaluation of Favio was on 06/10/2017 at approximately 06:30 a.m. The patient did extremely well over the night. We had a very good report from the nursing staff. Because of his D5W fluids, his blood sugar was elevated and it was necessary to change to lactated Ringer's. The patient is doing extremely well. He has voided. He was not being complaining of pain. He has minimal swelling. His occlusion is very stable. At this time, I reviewed with Favio and his mother the postoperative care. I showed them how to place rubber bands in the appropriate position between his maxillary and mandibular teeth. We talked about dietary care, oral hygiene care and followup care. At this time, I discussed with Favio the fact that he can be discharged if he feels that he is able to do so. The patient expressed a desire to go home and after discussing this with the nursing staff, we all feel that it is appropriate for him to discharge. Given the fact that his vital signs are stable, he is doing so good, he has been out of bed, he has voided and he is not having any problems, I see no reason for not discharge him. The patient was discharged on antibiotics in the form of Augmentin antibiotics and he will take 1 every 8 hours once he gets home. The patient will also take pain medication as needed for pain control. He has Zofran antibiotics and Peridex mouth rinse. He will be seen in my office in approximately 10 days for followup care. The patient has my email and my phone number if they have any concerns or questions. Other than that, I feel that he has tolerated the surgical procedure and anesthetic extremely well. He has an extremely good understanding of how to take care of himself and I feel that we overall have a very favorable response. This is a discharge and summary report for Favio Coyle and the patient will be discharged approximately 10:00 a.m. after his last dose of antibiotics and Decadron medication.
--- NOTE | 2017-06-10 08:21 | Anesthesiology Progress Note ---
Anesthesia Post Op Note Date & Time Jun 10, 2017 at 08:21 Vital Signs Pain Intensity: 0 Vital Signs Past 12 Hours Date Time Temp Pulse Resp B/P (MAP) Pulse Ox O2 Delivery O2 Flow Rate FiO2 06/10/17 08:00 36.9 78 18 107/63 (78) 97 Room Air 06/10/17 08:00 97 Room Air 06/10/17 05:02 64 21 123/57 (79) 95 Room Air 06/10/17 04:02 36.8 67 21 129/64 (85) 94 Room Air 06/10/17 04:00 Room Air 06/10/17 02:02 84 20 127/59 (81) 94 Room Air 06/10/17 01:02 64 20 127/63 (84) 93 Room Air 06/10/17 00:02 36.8 62 16 142/60 (87) 94 Room Air 06/09/17 23:59 Room Air 06/09/17 23:02 103 16 133/71 (91) 95 Room Air 06/09/17 22:02 71 19 129/63 (79) 93 06/09/17 21:01 81 22 135/71 (89) 94 06/09/17 20:31 70 19 128/74 (91) 93 Notes Mental Status: alert / awake / arousable, participated in evaluation Pt Amnestic to Procedure: Yes Nausea / Vomiting: adequately controlled Pain: adequately controlled Airway Patency, RR, SpO2: stable & adequate BP & HR: stable & adequate Hydration State: stable & adequate Anesthetic Complications: no major complications apparent
[2017-06-10] MEDS: CHLORHEXIDINE GLUCONATE 0.12% 480 ML MT SCH (08:24)
== END 2017-06-10 09:58 | disposition home or self-care (01) | DRG 134 ==
LOC: C.ACU 07:16 → C.MSICU 14:52 → ENRESERV 15:32
PROVIDERS: ADMIT Dentist Oral and Maxillofacial Surgery; ATTEND Dentist Oral and Maxillofacial Surgery
PROC: 0NHV04Z Insertion of Internal Fixation Device into Left Mandible, Open Approach (ICD-10-PCS; principal; 2017-06-09 09:15)
PROC: 0N8V0ZZ Division of Left Mandible, Open Approach (ICD-10-PCS; principal; 2017-06-09 09:15)
PROC: 0NHT04Z Insertion of Internal Fixation Device into Right Mandible, Open Approach (ICD-10-PCS; principal; 2017-06-09 09:15)
PROC: 0N8R0ZZ Division of Maxilla, Open Approach (ICD-10-PCS; principal; 2017-06-09 09:15)
PROC: 0N8T0ZZ Division of Right Mandible, Open Approach (ICD-10-PCS; principal; 2017-06-09 09:15)
DX: M26.02 Maxillary hypoplasia (principal); M26.19 Other specified anomalies of jaw-cranial base relationship; X58.XXXS Exposure to other specified factors, sequela